=== PATIENT | male | born 2000 | race Caucasian/White ===

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

== ENCOUNTER 2022-06-27 13:07 | Emergency (ER) | payer SELFPAY ==
[~2022-06-27] VITALS: Ht 182.9 cm; Wt 113.6 kg
[~2022-06-27 13:07] MED LIST changes: +PENI500T PO
[2022-06-27] MEDS ORDERED: BOOSTRIX/ADACEL VACCINE (DIPHTH/PERTUSS/ACELL/TETANUS) 0.5ML SYR IM ONE (15:00)
[2022-06-27] MEDS ORDERED: ceFAZolin SOD 2 GM in IV 1 EA IV ONE (15:15)
[2022-06-27] MEDS ORDERED: CEPH500C PO (15:25)
[2022-06-27] MEDS ORDERED: LIDOCAINE 1% MDV 20ML VIAL SC ONE (17:20)
[2022-06-27] MEDS ORDERED: MORPHINE 2 MG/ML 1ML VIAL IV ONE (17:25)
[2022-06-27 18:10] VITALS: BP 139/80
== END 2022-06-27 18:30 | disposition home or self-care (01) ==
LOC: M ED 13:07
DX: S92.511B Displaced fracture of proximal phalanx of right lesser toe(s), initial encounter for open fracture (principal); W22.8XXA Striking against or struck by other objects, initial encounter; Y92.003 Bedroom of unspecified non-institutional (private) residence as the place of occurrence of the external cause; F90.9 Attention-deficit hyperactivity disorder, unspecified type; J45.909 Unspecified asthma, uncomplicated; Z91.030 Bee allergy status; F17.200 Nicotine dependence, unspecified, uncomplicated; Z23 Encounter for immunization
CPT/HCPCS: 28515; 73660; 90471; 90715; 96365; 96375; 99284; J0690; J2270

== ENCOUNTER 2024-03-03 14:31 | Emergency (ER) | payer OTHER ==
[~2024-03-03] VITALS: Ht 182.9 cm; Wt 104.4 kg
[2024-03-03 14:36] VITALS: BP 133/89; TEMP 98.7; O2SAT 96
== END 2024-03-03 18:40 | disposition home or self-care (01) ==
LOC: M ED 14:31
DX: S62.336A Displaced fracture of neck of fifth metacarpal bone, right hand, initial encounter for closed fracture (principal); F90.9 Attention-deficit hyperactivity disorder, unspecified type; J45.909 Unspecified asthma, uncomplicated; Z91.030 Bee allergy status; Z79.2 Long term (current) use of antibiotics; Y92.9 Unspecified place or not applicable; Y93.89 Activity, other specified; Y99.9 Unspecified external cause status

== ENCOUNTER → 2024-03-03 | Outpatient (CLI) | payer OTHER ==
[~2024-03-03] MED LIST changes: +CEPH500C PO
== END ==
LOC: M WUC 13:51
PROVIDERS: ATTEND Nurse Practitioner Family
DX: M79.641 Pain in right hand (principal)

== ENCOUNTER → 2024-04-08 | Outpatient (CLI) | payer OTHER | LOC: M SOG 07:53 | PROVIDERS: ATTEND Pediatrics | DX: S62.336A Displaced fracture of neck of fifth metacarpal bone, right hand, initial encounter for closed fracture (principal) ==